=== PATIENT | male | born 1985 | race African-American/Black ===

== ENCOUNTER 2017-02-25 23:52 | Emergency (ER) | payer OTHER ==
[~2017-02-25] VITALS: Ht 175.3 cm; Wt 134.0 kg
[~2017-02-25 23:52] MED LIST: TORADOL 10 MG T10 MG PO
[2017-02-25 23:53] VITALS: BP 152/108
[2017-02-26] MEDS ORDERED: PENICILLIN V P500 MG PO
== END 2017-02-26 00:14 | disposition home or self-care (01) ==
LOC: ER 23:52
DX: K08.89 Other specified disorders of teeth and supporting structures (principal); F17.210 Nicotine dependence, cigarettes, uncomplicated